=== PATIENT | female | born 1975 ===

== ENCOUNTER → 2023-01-26 15:24 | Outpatient (CLI) | payer OTHER, SELFPAY ==
--- NOTE | ~2023-01-26 | US_ITS ---
EXAMINATION: US soft tissue upper back DATE: 01/26/2023 16:03 INDICATION: Localized swelling, mass and lump in right posterior thorax. TECHNIQUE: Multiple grayscale and Doppler ultrasound images of the posterior thorax were obtained. COMPARISON: None FINDINGS: In the right posterior thorax, there is a 1.4 x 1.3 x 0.8 cm hyperechoic subcutaneous mass without internal vascular flow. IMPRESSION: 1. 1.4 cm subcutaneous mass in right posterior thorax. This finding may be focal inflammation or a be nign mass such as hemangioma, peripheral nerve sheath tumor, or sebaceous cyst. Malignancy is unlikel y, but not excluded. Reviewed, dictated and finalized at location E. IMPRESSION: 1. 1.4 cm subcutaneous mass in right posterior thorax. This finding may be foca l inflammation or a benign mass such as hemangioma, peripheral nerve sheath angel or, or sebaceous cyst. Malignancy is unlikely, but not excluded.
== END ==
PROVIDERS: PCP Family Medicine; Visit Provider Nurse Practitioner
DX: R22.9 Localized swelling, mass and lump, unspecified (principal)
CPT/HCPCS: 76604